=== PATIENT | female | born 1990 | race African-American/Black ===

== ENCOUNTER 2020-04-26 21:38 | Emergency (ER) | payer OTHER ==
[~2020-04-26] VITALS: Ht 172.7 cm; Wt 68.0 kg
[2020-04-27 00:40] LABS: CHLORIDE 104 mEq/L (98-107)
[2020-04-27 00:42] LABS: PROTHROMBIN TIME 11.3 sec (9.6-11.0)
[2020-04-27 00:43] LABS: BASOPHILS % 0.3 % (0.0-2.0); EOSINOPHILS % 0.2 % (0.0-5.0); HEMATOCRIT. 39.2 % (36.0-48.0); HEMOGLOBIN. 13.2 g/dL (12.0-16.0); LYMPHOCYTES % 8.8 % (20.0-50.0); MEAN CORPUSCULAR HEMOGLOBIN 30.5 pg (28.0-32.0); MEAN CORPUSCULAR VOLUME 90.3 fL (81.0-99.0); MEAN PLATELET VOLUME 9.2 fl (7.4-10.4); MONOCYTES % 4.4 % (2.0-8.0); NEUTROPHILS % 86.3 % (40.0-76.0); PLATELET 268 x1000/uL (130-400); RED BLOOD CELL COUNT 4.34 mill/uL (4.2-5.4); RED CELL DISTRIBUTION WIDTH 16.6 % (11.6-14.6)
[2020-04-27 01:06] LABS: B-HCG QUANTITATIVE 78957 mIU/mL (<3)
[2020-04-27 01:30] VITALS: BP 116/70
== END 2020-04-27 01:30 | disposition home or self-care (01) ==
LOC: ER 21:50
DX: O20.8 Other hemorrhage in early pregnancy (principal); Z3A.08 8 weeks gestation of pregnancy
CPT/HCPCS: 36415; 76801; 80053; 81025; 84702; 85025; 86850; 86900; 99284